=== PATIENT | male | born 1995 | race Caucasian/White ===

== ENCOUNTER 2019-02-07 11:41 | Emergency (ER) | payer SELFPAY ==
[2019-02-07] MEDS: HYDROCODONE/APAP (5/325) TAB PO (14:07)
[2019-02-07] MEDS: ONDANSETRON (ODT) 4 MG TAB ODT (14:08)
== END 2019-02-07 15:09 | disposition home or self-care (01) ==
LOC: FTE 11:41
DX: S62.633A Displaced fracture of distal phalanx of left middle finger, initial encounter for closed fracture (principal); F17.210 Nicotine dependence, cigarettes, uncomplicated; W23.0XXA Caught, crushed, jammed, or pinched between moving objects, initial encounter; Y92.9 Unspecified place or not applicable
CPT/HCPCS: 29130; 73130-LT; 99283-25